=== PATIENT | female | born 1935 | race Caucasian/White ===

== ENCOUNTER 2022-03-02 23:27 | Inpatient (IN) ==
[2022-03-03 00:18] LABS: Bacteria,Urine Occasional /HPF (Few); Bilirubin,Urine Negative (Negative); Blood, Urine Trace mg/dL (Negative); Glucose,Urine (UA) Negative (Negative); Ketones,Urine Negative (Negative); Mucus,Urine Occasional /LPF (Occasional); Nitrite,Urine Positive (Negative); Protein,Urine Negative (Negative); Squamous Epithelial Cell,Urine Occasional /HPF (0-10); Urine Appearance Clear (Clear); Urine Color Yellow (Yellow); Urine Urobilinogen 0.2 eU/dL (<2.0)
[2022-03-03 00:20] LABS: Basophils % 0.6 % (0.0-0.8); Eosinophils % 0.6 % (0.00-10.9); Hematocrit 35.5 VOL% (35.7-47.0); Hemoglobin 11.7 GM/DL (12.0-16.0); Immature Granulocytes % 0.7 %; Immature Granulocytes Absolute 0.04 #; Lymphocytes # 1.2 10*3/uL (1.4-4.0); Lymphocytes % 21.8 % (21.3-54.2); Mean Corpuscular Volume 98.1 FL (87-102); Mean Platelet Volume 10.7 FL (9.6-12.0); Monocytes # 0.4 10*3/uL (0.11-0.8); Monocytes % 6.7 % (1.7-12.7); Neutrophils % 69.6 % (38.7-73.9); Platelet Count 172 T/CUMM (130-400); Red Blood Count 3.62 MC/CUMM (3.8-5.5); Red Cell Distribution Width 12.6 % (9.3-17.3); White Blood Count 5.4 T/CUMM (4-12)
[2022-03-03 00:28] LABS: Alanine Aminotransferase 29 U/L (13-56); Alkaline Phosphatase 58 U/L (45-117); Aspartate Amino Transferase 19 U/L (0-37); Bilirubin,Total < 0.39 MG/DL (0.20-1.00); Blood Urea Nitrogen 29 MG/DL (7-18); Calcium 9.4 MG/DL (8.5-10.1); Carbon Dioxide 25 MMOL/L (21-32); Chloride 112 MMOL/L (98-107); Glucose 134 MG/DL (74-106); Osmolality,Calculated 290.1 MOS/KG (273-304); Sodium 142 MMOL/L (136-145); Total Protein 6.7 G/DL (6.4-8.2)
[2022-03-03] MEDS ORDERED: LABETALOL 20 MG/4 ML SYRINGE IV STA (00:34)
[2022-03-03] MEDS ORDERED: MORPHINE 2 MG/1 ML SYRINGE IV ONE (00:34)
[2022-03-03] MEDS ORDERED: LORazepam 2 MG/1 ML VIAL IV STA (00:34)
[2022-03-03 00:35] LABS: INR 0.9; PT Patient Result 10.3 SECS (10.1-12.1)
[2022-03-03] MEDS ORDERED: ONDANSETRON 4 MG/2 ML VIAL IV PRN (01:10)
[2022-03-03] MEDS ORDERED: ACETAMINOPHEN 325 MG TABLET PO PRN (01:10)
[2022-03-03] MEDS ORDERED: GLUCAGON 1 MG VIAL IM PRN (01:10)
[2022-03-03] MEDS ORDERED: DEXTROSE 10% 250 ML BAG IV PRN (01:10)
[2022-03-03] MEDS ORDERED: MORPHINE 2 MG/1 ML SYRINGE IV PRN (01:10)
[2022-03-03] MEDS ORDERED: SODIUM CHLORIDE 0.9% 1,000 ML IV SCH (02:00)
[2022-03-03 04:53] LABS: Basophils % 0.2 % (0.0-0.8); Eosinophils % 0.2 % (0.00-10.9); Hematocrit 31.1 VOL% (35.7-47.0); Hemoglobin 10.3 GM/DL (12.0-16.0); Immature Granulocytes % 0.7 %; Immature Granulocytes Absolute 0.06 #; Lymphocytes # 0.8 10*3/uL (1.4-4.0); Lymphocytes % 8.9 % (21.3-54.2); Mean Corpuscular HGB Conc 33.1 GM/DL (32-36); Mean Corpuscular Volume 97.2 FL (87-102); Monocytes # 0.5 10*3/uL (0.11-0.8); Platelet Count 125 T/CUMM (130-400); Red Cell Distribution Width 12.4 % (9.3-17.3); White Blood Count 8.4 T/CUMM (4-12)
[2022-03-03 05:20] LABS: Albumin 3.3 G/DL (3.4-5.0); Bilirubin,Total 0.4 MG/DL (0.20-1.00); Calcium 9.1 MG/DL (8.5-10.1); Osmolality,Calculated 286.3 MOS/KG (273-304); Potassium 3.6 MMOL/L (3.5-5.1); Risk Ratio 2.9; Thyroid Stimulating Hormone 4.73 uIU/ml (0.358-3.74); Total Protein 6.1 G/DL (6.4-8.2); VLDL Cholesterol 8.2 MG/DL
[2022-03-03] MEDS: LEVOTHYROXINE 50 MCG TABLET PO SCH (06:44)
[2022-03-03] MEDS: lisinopriL 20 MG TABLET PO SCH (09:21)
[2022-03-03] MEDS: INSULIN LISPRO 100 UNIT/ML SUBCUT SCH ×4 (09:21→21:14)
[2022-03-03] MEDS: PANTOPRAZOLE 40 MG TABLET PO SCH (09:22)
[2022-03-03] MEDS: cefTRIAXone 1,000 MG in SODIUM CHLORIDE 0.9% 100 ML IV SCH (12:42)
[2022-03-03] MEDS ORDERED: ERGOCALCIFEROL 50,000 UNIT CAPSULE PO SCH (13:00)
[2022-03-03] MEDS: CALCIUM (CARBONATE) 500 MG TABLET PO SCH ×2 (14:09→21:14)
[2022-03-03] MEDS ORDERED: FAMOTIDINE 20 MG/2 ML VIAL IV ONE (15:07)
[2022-03-03] MEDS ORDERED: LEVOTHYROXINE 100 MCG VIAL IV ONE (15:30)
[2022-03-03] MEDS ORDERED: PHENYLEPHRINE DRIP 0 MG/0 ML PREMIX IV ONE (15:56)
[2022-03-03] MEDS ORDERED: ALBUMIN 5% 12.5 GM/250 ML VIAL IV ONE (15:56)
[2022-03-03] MEDS ORDERED: fentaNYL 100 MCG/2 ML VIAL ONE ×2 (16:03→16:36)
[2022-03-03] MEDS ORDERED: ETOMIDATE 40 MG/20 ML VIAL IV ONE (16:20)
[2022-03-03] MEDS ORDERED: ROCURONIUM 50 MG/5 ML VIAL IV ONE (16:20)
[2022-03-03] MEDS ORDERED: ONDANSETRON 4 MG/2 ML VIAL ONE ×2 (16:20→16:35)
[2022-03-03] MEDS ORDERED: LIDOCAINE 2% 5 ML VIAL ONE (16:20)
[2022-03-03] MEDS ORDERED: ceFAZolin 1,000 MG VIAL ONE (16:20)
[2022-03-03] MEDS ORDERED: PHENYLEPHRINE 1 MG/10 ML SYRINGE IV ONE (16:35)
[2022-03-03] MEDS ORDERED: SODIUM CHLORIDE 0.9% 100 ML IV ONE (16:35)
[2022-03-03] MEDS ORDERED: SEVOFLURANE 1 UNIT/15 MINUTE INH ONE (16:35)
[2022-03-03] MEDS ORDERED: TRANEXAMIC ACID 1,000 MG/10 ML VIAL ONE (16:35)
[2022-03-03] MEDS ORDERED: LACTATED RINGERS 1,000 ML IV ONE (17:06)
[2022-03-03] MEDS ORDERED: SUGAMMADEX 200 MG/2 ML VIAL IV ONE (17:40)
[2022-03-03] MEDS ORDERED: ROPIVACAINE 0.5% 30 ML VIAL ONE (18:05)
[2022-03-03] MEDS: hydrALAZINE 20 MG/1 ML VIAL IV PRN (18:25)
[2022-03-03 21:17] LABS: Hematocrit 30.3 VOL% (35.7-47.0); Hemoglobin 10.3 GM/DL (12.0-16.0)
[2022-03-04 05:04] LABS: Basophils % 0.1 % (0.0-0.8); Hematocrit 29.7 VOL% (35.7-47.0); Immature Granulocytes % 0.9 %; Immature Granulocytes Absolute 0.08 #; Lymphocytes # 0.7 10*3/uL (1.4-4.0); Lymphocytes % 8.2 % (21.3-54.2); Mean Corpuscular HGB Conc 33.7 GM/DL (32-36); Mean Corpuscular Volume 94.9 FL (87-102); Mean Platelet Volume 10.7 FL (9.6-12.0); Monocytes # 0.7 10*3/uL (0.11-0.8); Monocytes % 7.4 % (1.7-12.7); Neutrophils % 83.4 % (38.7-73.9); Platelet Count 151 T/CUMM (130-400); Red Blood Count 3.13 MC/CUMM (3.8-5.5); Red Cell Distribution Width 12.3 % (9.3-17.3); White Blood Count 8.9 T/CUMM (4-12)
[2022-03-04] MEDS: LEVOTHYROXINE 100 MCG VIAL IV SCH (06:35)
[2022-03-04] MEDS: ENOXAPARIN 40 MG/0.4 ML SYRINGE SUBCUT SCH (08:40)
[2022-03-04] MEDS: CALCIUM (CARBONATE) 500 MG TABLET PO SCH ×2 (08:41→21:56)
[2022-03-04] MEDS: PANTOPRAZOLE 40 MG TABLET PO SCH (08:41)
[2022-03-04] MEDS: INSULIN LISPRO 100 UNIT/ML SUBCUT SCH ×4 (08:41→21:56)
[2022-03-04] MEDS: lisinopriL 20 MG TABLET PO SCH (08:41)
[2022-03-04] MEDS ORDERED: ERGOCALCIFEROL 50,000 UNIT CAPSULE PO SCH (09:00)
[2022-03-04] MEDS: cefTRIAXone 1,000 MG in SODIUM CHLORIDE 0.9% 100 ML IV SCH (12:02)
[2022-03-05 05:57] LABS: Basophils % 0.1 % (0.0-0.8); Hematocrit 27.6 VOL% (35.7-47.0); Hemoglobin 9.2 GM/DL (12.0-16.0); Immature Granulocytes % 0.7 %; Immature Granulocytes Absolute 0.06 #; Lymphocytes # 0.7 10*3/uL (1.4-4.0); Lymphocytes % 7.9 % (21.3-54.2); Mean Corpuscular HGB Conc 33.3 GM/DL (32-36); Mean Corpuscular Volume 97.2 FL (87-102); Mean Platelet Volume 10.8 FL (9.6-12.0); Monocytes # 0.9 10*3/uL (0.11-0.8); Neutrophils % 81.3 % (38.7-73.9); Platelet Count 146 T/CUMM (130-400); Red Blood Count 2.84 MC/CUMM (3.8-5.5); Red Cell Distribution Width 12.4 % (9.3-17.3); White Blood Count 8.8 T/CUMM (4-12)
[2022-03-05 06:32] LABS: % Iron Saturation 6.7 % (18-50); Calcium 8.8 MG/DL (8.5-10.1); Ferritin 238.9 ng/mL (8-252); Osmolality,Calculated 278.7 MOS/KG (273-304); Potassium 3.5 MMOL/L (3.5-5.1)
[2022-03-05] MEDS: LEVOTHYROXINE 50 MCG TABLET PO SCH (07:28)
[2022-03-05] MEDS: INSULIN LISPRO 100 UNIT/ML SUBCUT SCH ×4 (07:29→21:27)
[2022-03-05] MEDS: LEVOTHYROXINE 100 MCG VIAL IV SCH (07:29)
[2022-03-05] MEDS: PANTOPRAZOLE 40 MG TABLET PO SCH (09:01)
[2022-03-05] MEDS: lisinopriL 20 MG TABLET PO SCH (09:01)
[2022-03-05] MEDS: ENOXAPARIN 40 MG/0.4 ML SYRINGE SUBCUT SCH (09:01)
[2022-03-05] MEDS: CALCIUM (CARBONATE) 500 MG TABLET PO SCH ×2 (10:46→21:26)
[2022-03-05] MEDS: cefTRIAXone 1,000 MG in SODIUM CHLORIDE 0.9% 100 ML IV SCH (12:38)
[2022-03-05] MEDS: DEXT 5% NACL 0.45% KCL 20 MEQ 20 MEQ/1,000 ML BAG IV SCH (16:57)
[2022-03-05] MEDS: hydrALAZINE 20 MG/1 ML VIAL IV PRN (21:26)
[2022-03-06] MEDS: DEXT 5% NACL 0.45% KCL 20 MEQ 20 MEQ/1,000 ML BAG IV SCH ×2 (02:28→11:42)
[2022-03-06 05:41] LABS: Calcium 8.3 MG/DL (8.5-10.1); Osmolality,Calculated 280.5 MOS/KG (273-304); Potassium 3.7 MMOL/L (3.5-5.1)
[2022-03-06] MEDS: LEVOTHYROXINE 100 MCG VIAL IV SCH (06:40)
[2022-03-06] MEDS: INSULIN LISPRO 100 UNIT/ML SUBCUT SCH ×4 (08:21→21:09)
[2022-03-06] MEDS: PANTOPRAZOLE 40 MG TABLET PO SCH (08:47)
[2022-03-06] MEDS: ENOXAPARIN 40 MG/0.4 ML SYRINGE SUBCUT SCH (08:47)
[2022-03-06] MEDS: lisinopriL 20 MG TABLET PO SCH (08:47)
[2022-03-06] MEDS: CALCIUM (CARBONATE) 500 MG TABLET PO SCH ×2 (08:47→21:09)
[2022-03-06] MEDS: cefTRIAXone 1,000 MG in SODIUM CHLORIDE 0.9% 100 ML IV SCH (13:31)
[2022-03-07 05:49] LABS: Calcium 8.4 MG/DL (8.5-10.1); Osmolality,Calculated 280.3 MOS/KG (273-304); Potassium 3.9 MMOL/L (3.5-5.1)
[2022-03-07] MEDS: LEVOTHYROXINE 50 MCG TABLET PO SCH (06:22)
[2022-03-07] MEDS: INSULIN LISPRO 100 UNIT/ML SUBCUT SCH ×4 (08:39→20:12)
[2022-03-07] MEDS: ENOXAPARIN 40 MG/0.4 ML SYRINGE SUBCUT SCH (09:03)
[2022-03-07] MEDS: CALCIUM (CARBONATE) 500 MG TABLET PO SCH ×2 (09:03→20:13)
[2022-03-07] MEDS: lisinopriL 20 MG TABLET PO SCH (09:04)
[2022-03-07] MEDS: PANTOPRAZOLE 40 MG TABLET PO SCH (09:04)
[2022-03-07] MEDS: cefTRIAXone 1,000 MG in SODIUM CHLORIDE 0.9% 100 ML IV SCH (12:34)
[2022-03-08] MEDS: hydrALAZINE 20 MG/1 ML VIAL IV PRN (04:41)
[2022-03-08 05:22] LABS: Basophils % 0.8 % (0.0-0.8); Eosinophils # 0.1 10*3/uL (0.0-0.87); Eosinophils % 3.1 % (0.00-10.9); Hematocrit 26.6 VOL% (35.7-47.0); Hemoglobin 8.8 GM/DL (12.0-16.0); Immature Granulocytes % 0.8 %; Immature Granulocytes Absolute 0.03 #; Lymphocytes # 0.9 10*3/uL (1.4-4.0); Lymphocytes % 24.5 % (21.3-54.2); Mean Corpuscular HGB Conc 33.1 GM/DL (32-36); Mean Corpuscular Volume 96.7 FL (87-102); Mean Platelet Volume 10.2 FL (9.6-12.0); Monocytes # 0.4 10*3/uL (0.11-0.8); Monocytes % 9.9 % (1.7-12.7); Neutrophils % 60.9 % (38.7-73.9); Platelet Count 181 T/CUMM (130-400); Red Blood Count 2.75 MC/CUMM (3.8-5.5); Red Cell Distribution Width 11.9 % (9.3-17.3); White Blood Count 3.8 T/CUMM (4-12)
[2022-03-08 05:40] LABS: Calcium 8.8 MG/DL (8.5-10.1); Osmolality,Calculated 280.3 MOS/KG (273-304); Potassium 3.7 MMOL/L (3.5-5.1)
[2022-03-08] MEDS: LEVOTHYROXINE 50 MCG TABLET PO SCH (06:44)
[2022-03-08] MEDS: INSULIN LISPRO 100 UNIT/ML SUBCUT SCH ×3 (09:39→16:09)
[2022-03-08] MEDS: CALCIUM (CARBONATE) 500 MG TABLET PO SCH (09:40)
[2022-03-08] MEDS: ENOXAPARIN 40 MG/0.4 ML SYRINGE SUBCUT SCH (09:40)
[2022-03-08] MEDS: lisinopriL 20 MG TABLET PO SCH (09:40)
[2022-03-08] MEDS: PANTOPRAZOLE 40 MG TABLET PO SCH (09:40)
[2022-03-08 12:17] VITALS: BP 112/48
[2022-03-08] MEDS: cefTRIAXone 1,000 MG in SODIUM CHLORIDE 0.9% 100 ML IV SCH (13:01)
== END 2022-03-08 17:24 | disposition swing bed (61) | DRG 522 ==
LOC: N.ED 23:27 → N.EDINP 03-03 01:06 → SUATTDRO 03-03 01:06 → N.EDINP 03-03 02:01 → N.3E 03-03 02:39
PROVIDERS: ADMIT Internal Medicine; ATTEND Internal Medicine